=== PATIENT | male | born 1945 | race Hispanic/Latino ===

== ENCOUNTER → 2018-06-24 | Day surgery (SDC) | payer MEDICARE ==
[~2018-06-24] MED LIST: ATORVASTATIN CA20 MG PO; FLECTOR1 EACH PO; LISINOPRIL2.5 MG PO; PROPOFOL IV EMULSION 10 MG/ML 50 ML VIAL ONE
--- OUTSIDE RECORDS SUMMARY | 2018-06-24 08:01 | XMS REPORT ---
[facility] Phone Unavailable Care Team Providers Care Production Control Analyst Name Role Phone Jadyn YOON PP Unavailable Payers Payer Name Policy Type Policy Number Effective Date Expiration Date Problems This patient has no known problems. Allergies, Adverse Reactions, Alerts This patient has no known allergies or adverse reactions. Medications This patient has no known medications. Encounters Start Date/Time End Date/Time Encounter Type Admission Type Attending Clinicians Care Facility Care Department Encounter ID 2016-10-27 17:23:00 Inpatient [facility] [id number] 2017-09-18 11:47:00 2017-09-18 11:47:00 Outpatient C [facility] [id number] Results Test Description Test Time Test Comments Text Results Atomic Results Result Comments XR SHOULDER 2+V.COMPLETE-LEFT 2017-09-18 12:28:12 XR SHOULDER 2+V.COMPLETE- LEFTINDICATION: M75.00: ADHESIVE CAPSULITIS OF UNSPECIFIED SHOULDERCOMMENTS: AP internal, AP external, and transscapular Y views of the shoulder wereobtained.No acute fracture or malalignment is identified. There is milddegenerative narrowing of the acromioclavicular and glenohumeral joints. Mild osteophytosis is noted. Small rotator cuff calcifications arepresent.IMPRESSION: Mild to moderate degenerative changes. No acute fracture ormalalignment.Location: R16
[2018-06-24 08:56] LABS: BASOPHILS # (AUTO) 0.1 (0.0-0.1); BASOPHILS % 0.9 % (0.0-1.0); EOSINOPHILS # (AUTO) 0.7 (0.0-0.4); EOSINOPHILS % 6.7 % (0.0-6.0); HEMATOCRIT 44.1 % (38.2-49.6); HEMOGLOBIN 14.8 g/dL (14.0-18.0); LYMPHOCYTES # (AUTO) 2.4 (1.0-3.2); LYMPHOCYTES % 24.6 % (18.0-39.1); MEAN CORPUSCULAR HGB CONC 33.6 g/dL (31-35); MEAN CORPUSCULAR VOLUME 89.5 fL (81-99); MONOCYTES # (AUTO) 0.6 (0.2-0.8); MONOCYTES % 6.6 % (4.4-11.3); NEUTROPHILS # (AUTO) 5.9 (2.1-6.9); PLATELET COUNT 210 x10e3/uL (140-360); RED BLOOD COUNT 4.93 x10e6/uL (4.3-5.7); RED CELL DISTRIBUTION WIDTH 13.4 % (11.7-14.4)
[2018-06-24 10:30] VITALS: BP 124/73
== END | disposition home or self-care (01) ==
LOC: OR 07:58
PROVIDERS: ATTEND Internal Medicine Gastroenterology
DX: Z12.11 Encounter for screening for malignant neoplasm of colon (principal); D12.0 Benign neoplasm of cecum; K57.30 Diverticulosis of large intestine without perforation or abscess without bleeding; K64.8 Other hemorrhoids; Z71.3 Dietary counseling and surveillance; I10 Essential (primary) hypertension; E66.3 Overweight; Z68.27 Body mass index [BMI] 27.0-27.9, adult
CPT/HCPCS: 36415; 45378; 45384; 85025; 93005